=== PATIENT | male | born 1960 | race African-American/Black ===

== ENCOUNTER 2020-07-14 05:15 | Inpatient (IN) | payer OTHER ==
[2020-07-14] VITALS (14 sets, daily range): BP systolic 137–157; BP diastolic 77–89
[~2020-07-14] VITALS: Ht 175.3 cm; Wt 108.9 kg
[~2020-07-14 05:15] MED LIST: ACCUPRIL5 MG ORAL; ALBUTEROL SULF8.5 G1 INH; ASPIRIN81 MG ORAL; CETIRIZINE HCL10 MG PO; CRESTOR10 M2 ORAL; GLIPIZIDE5 MG ORAL; LOSARTAN-HCTZ1 EAC2 ORAL; METFORMIN HCL500 M1 ORAL
[2020-07-14] MEDS ORDERED: Midazolam 2mg/2ml Inj ONE (06:34)
[2020-07-14] MEDS ORDERED: fentaNYL 100 mcg/2 mL IV ONE (06:34)
[2020-07-14] MEDS ORDERED: Lidocaine 1% MPF 10mg/ml 5ml ONE (06:35)
[2020-07-14] MEDS ORDERED: Phenylephrine 10mg/ml Vial ONE (06:35)
[2020-07-14] MEDS ORDERED: Vancomycin 1gm vial IVPB ONE (06:41)
[2020-07-14] MEDS ORDERED: Gelfoam Size TOPIC ONE (06:42)
[2020-07-14] MEDS ORDERED: Thrombin 5000 units TOPIC ONE ×2 (06:42→08:29)
[2020-07-14] MEDS ORDERED: Bacitracin 50000 Units Vial ONE (06:43)
[2020-07-14] MEDS ORDERED: Rocuronium Bromide 50mg/5ml Inj IV ONE (06:43)
[2020-07-14] MEDS ORDERED: Succinylcholine 20mg/ml 10ml vial ONE (06:43)
[2020-07-14] MEDS ORDERED: LR 1000ml ONE (07:00)
[2020-07-14] MEDS ORDERED: Neostigmine 1mg/ml 10ml Inj ONE (07:00)
[2020-07-14] MEDS ORDERED: NS Irrig 1000ml ONE (07:00)
[2020-07-14] MEDS ORDERED: propofoL 1,000mg/100ml IV ONE (07:00)
[2020-07-14] MEDS ORDERED: ceFAZolin sod 2 GM in NS 55 ML IVPB ONE (07:00)
[2020-07-14] MEDS ORDERED: Sterile Water Irrig 1000ml IRRIG ONE (07:00)
--- NOTE | 2020-07-14 07:13 | Pre-Procedure Note/Attestation ---
Pre-Procedure Note/Attestation Complete Prior to Procedure Planned Procedure: not applicable Procedure Narrative: Anterior cervical discectomy and fusion of cervical 34,45 and 67 Indications for Procedure Pre-Operative Diagnosis: Disc herniation of C34,45,67 Attestation I attest that I discussed the nature of the procedure; its benefits; risks and complications; and alternatives (and the risks and benefits of such alternatives), prior to the procedure, with the patient (or the patient's legal inbound sales representative). I attest that, if there was a reasonable possibility of needing a blood transfusion, the patient (or the patient's legal inbound sales representative) was given the [facility] standardized written summary, pursuant to the Ras Stacey Blood Safety Act ([place] Health and Safety Code # 1645, as amended). I attest that I re-evaluated the patient just prior to the surgery and that there has been no change in the patient's H&P, except as documented below: Marvin Sanches MD Jul 14, 2020 07:13
--- NOTE | 2020-07-14 07:14 | Brief Operative Note ---
Immediate Post Operative Note Operative Note Chief Complaint: neck pain and radiculopathy Pre-op Diagnosis: Disc herniation of C34,45,67 Procedure: Anterior cervical discectomy and fusion of cervical 34,45 and 67 Post-op Diagnosis: same as pre-op Findings: consistent w/pre-op dx studies Surgeon: Verónica Paid Intern: Ozzy Anesthesiologist: PATTI Anesthesia: general Specimen: none Complications: none Condition: stable Fluids: IVF Estimated Blood Loss: minimal Drains: none Implant(s) used?: Yes - Nuvasive interlock sz5x2, sz 6x1, each level with 13mm screwsx3 Marvin Sanches MD Jul 14, 2020 07:14
[2020-07-14] MEDS ORDERED: Morphine Sulfate 2mg/ml Inj(IV/IM USE ONLY) IV PRN (07:15)
[2020-07-14] MEDS ORDERED: Chloraseptic Spray 20mL Bottle ORAL PRN (07:15)
[2020-07-14] MEDS ORDERED: Morphine Sulfate 4mg/ml Inj (IV USE ONLY) IV PRN ×2 (07:15)
[2020-07-14] MEDS ORDERED: Metoclopramide 10mg/2ml Inj IVP PRN (07:15)
[2020-07-14] MEDS ORDERED: HYDROcodone/Acetamin 5/325 tab ORAL PRN (07:15)
[2020-07-14] MEDS ORDERED: HYDROmorphone 1mg/ml Carpuject IVP PRN (07:15)
[2020-07-14] MEDS ORDERED: Milk of Magnesia 30ml Ud ORAL PRN (07:15)
[2020-07-14] MEDS ORDERED: Naloxone 0.4mg/ml Inj IVP PRN (07:15)
[2020-07-14] MEDS ORDERED: HYDROcodone/Acetamin 7.5/325 tab ORAL PRN ×2 (07:15)
[2020-07-14] MEDS ORDERED: Metoprolol Tartrate 5mg/5ml Inj ONE (08:08)
[2020-07-14] MEDS ORDERED: Morphine Sulfate 10mg/ml Inj ONE (08:11)
[2020-07-14] MEDS ORDERED: Sodium Chloride 10ml vial INJ ONE (08:12)
--- NOTE | 2020-07-14 08:26 | Anethesia Preoperative Eval ---
Anesthesia Pre-op PMH/ROS General Date of Evaluation: Jul 14, 2020 Time of Evaluation: 06:57 Anesthesiologist: Trina ASA Score: ASA 3 Mallampati Score Class I : Soft palate, uvula, fauces, pillars visible Class II: Soft palate, uvula, fauces visible Class III: Soft palate, base of uvula visible Class IV: Only hard plate visible Mallampati Classification: Class II Surgeon: Verónica Diagnosis: Cervical radiculopathy Surgical Procedure: ACDF Anesthesia History: none Family History: no anesthesia problems Allergies: Coded Allergies: No Known Allergies (Unverified , 07/14/20) Medications: see eMAR Patient NPO?: Yes Past Medical History Cardiovascular: Reports: HTN; Denies: CAD, GA, valve dz, arrhythmia, other Pulmonary: Reports: asthma - mild; Denies: COPD, ELOISA, other Gastrointestinal/Genitourinary: Reports: GERD, CRI - elevated Cr; Denies: ESRD, other Neurologic/Psychiatric: Reports: other - chronic pain Endocrine: Reports: DM; Denies: hypothyroidism, steroids, other HEENT: Denies: cataract (L), cataract (R), glaucoma, GULKANA (L), GULKANA (R), other Hematology/Immune: Reports: anemia - mild; Denies: DVT, bleeding disorder, other Musculoskeletal/Integumentary: Reports: OA, other - psoriasis Other: obesity PMH Narrative: as above PSxH Narrative: None Anesthesia Pre-op Phys. Exam Physician Exam Last Vital Signs Date Time Temp Pulse Resp B/P (MAP) Pulse Ox O2 Delivery O2 Flow Rate FiO2 07/14/20 05:57 Room Air 07/14/20 05:54 98.0 83 18 154/86 (108) 98 Constitutional: NAD Neurologic: CN 2-12 intact Cardiovascular: RRR Respiratory: CTA Gastrointestinal: other - besity Airway Exam Mallampati Score: Class II MO: limited Neck: short ROM: limited Teeth: missing Dentures: no upper, no lower Anesthesia Pre-op A/P Labs Chemistry Test 07/14/20 05:59 POC Whole Blood Glucose Pending Studies Pre-op Studies: EKG - NR, CXR - WNL, echo - EF 60-65% Risk Assessment & Plan Assessment: ASA 3 Plan: GA with ET neuromonitoring Status Change Before Surgery: No Pre-Antibiotics Drug: Ancef 2gr. Given Within 1 Hr of Incision: Yes Time Given: 08:05 Catracho Mena MD Jul 14, 2020 08:26
[2020-07-14] MEDS ORDERED: DiphenhydrAMINE 50mg/ml Inj IVP PRN (08:30)
[2020-07-14] MEDS ORDERED: Ketorolac 30mg Inj IV PRN (08:30)
[2020-07-14] MEDS ORDERED: LR 1000ml 1,000 ML IVLG SCH (08:30)
[2020-07-14] MEDS ORDERED: Hydromorphone 0.5mg/0.5ml inj IVP PRN (08:30)
[2020-07-14] MEDS ORDERED: Acetaminophen (Non formulary) 100 ML IV ONE (08:45)
[2020-07-14] MEDS ORDERED: Glycopyrrolate 0.2mg/ml 1ml Vial ONE (08:53)
[2020-07-14] MEDS ORDERED: Insulin Human Regular 100units/ml 3ml ONE (10:10)
[2020-07-14] MEDS ORDERED: Insulin Human Regular 100units/ml 3ml SUBQ ONE (10:15)
--- NOTE | 2020-07-14 10:15 | Immediate Post-Op Evaluation ---
Immediate Post-Op Evalulation Immediate Post-Op Evalulation Procedure: ACDF C3-C4, C4-C5, C6-C7 Date of Evaluation: Jul 14, 2020 Time of Evaluation: 10:14 IV Fluids: 600 Blood Products: none Estimated Blood Loss: 100 Urinary Output: 250 Blood Pressure Systolic: 134 Blood Pressure Diastolic: 76 Pulse Rate: 86 Respiratory Rate: 20 O2 Sat by Pulse Oximetry: 99 Temperature (Fahrenheit): 97.8 Pain Score (1-10): 1 Nausea: No Vomiting: No Complications none Patient Status: reacts, patent, extubated, none Hydration Status: adequate Catracho Mena MD Jul 14, 2020 10:15
--- NOTE | 2020-07-14 12:00 | NUR ---
NURSE NOTES: Patient arrived to unit at 1150 via bed in no apparent distress, reporting no pain but mild discomfort at surgical site. Received report from Mariana BARRAZA. Surgical site clean and dry, no bleeding, open to air with ice pack in place. IV intact, patent. On 3L NC. Neuro status intact, patient denies numbness/tingling in extremities. VS stable, on continuous pulseox. Bed in low and locked position and patient provided with call light. Per Mariana BARRAZA, outpatient will bring up patient's belongings.
--- NOTE | 2020-07-14 12:10 | 48 Hour Post Anesthesia Eval ---
Post Anesthesia Evaluation Procedure: ACDF C3-C4, C4-C5, C6-C7 Date of Evaluation: Jul 14, 2020 Time of Evaluation: 12:08 Blood Pressure Systolic: 153 0: 83 Pulse Rate: 85 Respiratory Rate: 20 Temperature (Fahrenheit): 97.6 O2 Sat by Pulse Oximetry: 97 Airway: patent Nausea: No Vomiting: No Pain Intensity: 2 Hydration Status: adequate Cardiopulmonary Status: Stable Mental Status/LOC: patient returned to baseline Follow-up Care/Observations: 0 Post-Anesthesia Complications: 0 Follow-up care needed: N/A Obdulio Girard MD Jul 14, 2020 12:10
--- NOTE | 2020-07-14 13:38 | NUR ---
NURSE NOTES: Received call from Dr. Sanches, provided updated on patient's current status. Reviewed home medications and received orders to continue metformin, losartan/hctz, and glipizide. Notified MD of bedside BG [id number], received order for sliding scale insulin (average).
[2020-07-14] MEDS: NS w/KCl 20mEq 1000ml 1,000 ML IV SCH ×2 (13:46→22:57)
--- NOTE | 2020-07-14 14:06 | Diagnostic Imaging Report ---
INDICATION: Pain, intraoperative TECHNIQUE: Intraoperative imaging Fluoroscopy time: 20.8 seconds Total dose: 0.43033 mGym2 Total number of images: 5 COMPARISON: None FINDINGS: Surgical tools are seen overlying initially C2 and C4, subsequently C3 and C5. Subsequent images document anterior fusion hardware bridging C3, C4, and C5, as well as C6 and C7. IMPRESSION: Intraoperative imaging, as described
[2020-07-14] MEDS: ceFAZolin sod 1 GM in D5W 55 ML IV SCH ×2 (15:49→22:57)
--- NOTE | 2020-07-14 16:14 | Operative Note - Dictated ---
DATE OF OPERATION: 07/14/2020 PREOPERATIVE DIAGNOSES: Cervical stenosis and herniation with stenosis at C3- C4, C4-C5, and C6-C7. Prior to marking the incision,baseline motor and sensory-evoked potentials and we were able to evoke them; however, we were unable to evoke motor-evoked potentials but prior to surgery moving of all 4 extremities prior to surgery and we elected to proceed with surgery. Marvin Sanches M.D. DR: LALITHA JOB#: [id number] CC: FREDO
--- NOTE | 2020-07-14 16:29 | Operative Note - Dictated ---
DATE OF OPERATION: 07/14/2020 SURGEON: Marvin Sanches MD, Orthopaedic Spine Surgeon. METAL FABRICATOR APPRENTICE: JUAN CARLOS Valencia PREOPERATIVE DIAGNOSES: 1. Intractable neck pain. 2. Radiculopathy. 3. Herniation, C3-C4, C4-C5, and C6-C7. 4. Neural foraminal stenosis, C3-C4, C4-C5, and C6-C7. 5. Stenosis. POSTOPERATIVE DIAGNOSES: 1. Intractable neck pain. 2. Radiculopathy. 3. Herniation, C3-C4, C4-C5, and C6-C7. 4. Neural foraminal stenosis, C3-C4, C4-C5, and C6-C7. 5. Stenosis. PROCEDURE PERFORMED: 1. Anterior cervical discectomy and fusion of C3-C4, using NuVasive interlock C, size 5 with three screws of 14 mm length and 1 mL of Osteocel allograft bone. 2. Anterior cervical discectomy and fusion of C4-C5, using NuVasive interlock C, size 6 with three screws of 14 mm length and 1 mL of Osteocel allograft bone. 3. Anterior cervical discectomy and fusion of C6-C7, using NuVasive interlock C, size 6 with three screws of 14 mm length. 4. Use of intraoperative microscope. 5. Motor-evoked potential monitoring. 6. Somatosensory-evoked potential monitoring. 7. Supervision and interpretation of fluoroscopy. COMPLICATIONS: None. ANESTHESIA: General. ESTIMATED BLOOD LOSS: Less than 100 mL. INDICATIONS FOR SURGERY: This patient is a 60-year-old male, who has a history of intractable neck pain, radiculopathy, herniation, C3-C4, C4-C5, and C6-C7, neural foraminal stenosis, C3-C4, C4-C5, and C6-C7, stenosis. We tried a course of conservative management but despite this course there was still a significant component of persistent, recalcitrant neck pain and arm pain. The MRI demonstrated significant neural foraminal compromise secondary to disc herniations at C3-C4, C4-C5, and C6-C7. We had a long discussion with [employer] regarding the risks and benefits of surgery. Our discussion included but was not limited to nonoperative management, chiropractic management, another epidural steroid injection as well definitive management in the form of surgery. We recommended an anterior cervical discectomy and fusion of C3-C4, C4-C5, and C6-C7 as final definitive management. We reviewed the risks and benefits of surgery with the patient. Our discussion included a comprehensive review of the clinical issues and the nature of the clinical decision. We reviewed the alternatives, including doing nothing. The patient elected to proceed accordingly with anterior cervical discectomy and fusion of C3-C4, C4-C5, and C6-C7. We had a long discussion regarding the risks, alternatives and benefits of surgery. Our description of the risks included a discussion in person as well as a signed consent which detailed all pertinent risks from the procedure itself. Briefly, our discussion included but was not limited to infection, bleeding, pseudarthrosis, spinal cord injury, neurovascular injury, dural tear, CSF leak, neuropathy, paralysis, permanent weakness/drop foot/drop arm, paresthesias, blindness, palsy and weakness. The patient understood there may be a need for a revision surgery or additional procedures. Approach-related complications including dysphonia, dysphagia, blindness, permanent vocal cord and neural injury, hematoma, swallowing and breathing difficulty. Medical complications were reviewed including liver, kidney, shock, cardiopulmonary failure, anesthesia complications including , swelling, damage to the musculature, larynx/voice injury or loss, esophagus/throat, trachea, blood vessels and muscles/muscular sprain and lungs/pneumothorax during this surgical procedure; injury to deeper structures may be temporary or permanent. After this review of risks, the patient understood these and elected to proceed. A written and verbal consent was given. We discussed the pros and cons of all the alternatives. We discussed the uncertainties associated with the decision. Afterwards I assessed the patient's understanding and explored their preferences. All questions were answered and no guarantees were given. Medical clearance was obtained prior to surgery. INTRAOPERATIVE FINDINGS: C3-C4; at C3-C4, we encountered an anterior based bone spur, which was denuded with an AM8 Midas Julito drill. The disc itself once visualized was collapsed. There was a soft character to the disc itself. It was not dehydrated for the majority of the disc. On approaching the posterior longitudinal ligament posteriorly, I found a tear in the PLL and through this tear I probed and found discrete tissue of nucleus pulposus, which was encroaching on the neural foramina. This tissue was resected with a Microsect curette, Kerrison-1 and Kerrison-2 rongeurs until complete and thorough foraminotomy and decompression of the thecal sac and spinal cord was performed. C4-C5; there was an anterior bone spur, which was denuded with a drill bit giving rise to a collapsed disc space at C4-C5. The disc area appeared dehydration. Upon resection of the disc, I noted the posterior longitudinal ligament demonstrated a tear along the posterior fibers. This was probed and led to the discovery of a nuclear fragment encroaching on the neural foramina posteriorly and applying pressure along the aspect of the thecal sac, spinal cord and neural foramina bilaterally. This was carefully resected with Kerrison-1 and Kerrison-2 rongeurs. At C6-C7, I encountered no overlying bone spur. There was a collapse of the disc space. The disc itself was soft and appeared to be probably dehydrated. Upon resection of the disc near the posterior aspect, I noted a tear in the posterior longitudinal ligament approximately 10 degrees cephalad to caudad. On probing this tear, gave rise to three nuclear fragments from the nucleus pulposus, which were currently encroaching the neural foramina and the thecal sac and spinal cord posteriorly. These were resected with Kerrison-1 and Kerrison-2 rongeurs until complete decompression of the thecal sac and spinal cord was performed. After which, the foraminotomy was performed with Kerrison-2 rongeur as well. DESCRIPTION OF PROCEDURE: Under the benefit of general endotracheal anesthesia and with the assistance of the entire operative team, the patient was moved from the rsmyrna onto the operative table in the supine position. The head was secured and carefully positioned appropriately. Bilateral arms were secured with Gel Pads and foam and all bony prominences were padded. For the bilateral lower extremities SCD and MARY hose were placed for DVT prophylaxis. A surgical timeout was called which corroborated our planned procedure of anterior cervical discectomy and fusion of C3-C4, C4-C5, and C6-C7. Preoperative antibiotics were administered within 30 minutes of the incision for antibiotic prophylaxis. Using lateral fluoroscopic radiography, the operative levels were delineated. Next the wound was prepped and draped with Chlorhexidine and sterile drapes. An incision was based on lateral fluoroscopy and we centered our incision at the C3-C4, C4-C5, and C6-C7 interspace and next using a standard Davis-Castorena anterior based approach the incision was taken down through the skin and subcutaneous tissues until the vertebral bodies and their corresponding disc spaces were visualized. A needle was placed into the interspace to confirm placement of the operative interspace and we performed the remainder of procedure under microscopic visualization. Next, using a bipolar and Bovie cautery to ensure meticulous hemostasis, the longus colli was mobilized bilaterally and retractors were placed deep to the longus colli bilaterally to address retraction. Next, we turned our attention to the radical anterior discectomy. This was initially performed at C3-C4. First by using a 15 blade scalpel followed by narrow pituitaries and a Microsect 5-B curette was used to denude the endplate of all cartilaginous tissue. Next, using a Midas Julito AM8 drill bit the vertebral endplates were denuded in a bcgq-fl-aoch and layer by layer fashion, and ultimately the posterior uncinate joints bilaterally and posterior osteophytic lips and margins causing central and lateral impingement were carefully denuded until visualization of the posterior longitudinal ligament was possible. An endplate preparation was performed in the exact same fashion using an intervertebral tribal delegate, sequential distraction was obtained throughout the disc space. We saw a tear/rent in the PLL and this was carefully mobilized and dissected using a Microsect 1-B curette until we visualized a broad-based disc herniation with compression of the spinal cord as well as neural foramina bilaterally. This neural foraminal compression was carefully resected using a Kerrison-1 and Kerrison-2 rongeurs until complete decompression of the spinal cord was visualized and complete decompression of the neural foramina and nerve root therein as well as the axilla and lateral margin of the nerve root was visualized and subsequently completely decompressed. The family was notified at one hour intervals throughout the procedure to provide for consistent updates. Next, we turned our attention to the radical anterior discectomy. This was initially performed at C4-C5. First by using a 15 blade scalpel followed by narrow pituitaries and a Microsect 5-B curette was used to denude the endplate of all cartilaginous tissue. Next, using a Midas Julito AM8 drill bit the vertebral endplates were denuded in a [id number] and layer by layer fashion, and ultimately the posterior uncinate joints bilaterally and posterior osteophytic lips and margins causing central and lateral impingement were carefully denuded until visualization of the posterior longitudinal ligament was possible. An endplate preparation was performed in the exact same fashion using an intervertebral tribal delegate, sequential distraction was obtained throughout the disc space. We saw a tear/rent in the PLL and this was carefully mobilized and dissected using a Microsect 1-B curette until we visualized a broad-based disc herniation with compression of the spinal cord as well as neural foramina bilaterally. This neural foraminal compression was carefully resected using a Kerrison-1 and Kerrison-2 rongeurs until complete decompression of the spinal cord was visualized and complete decompression of the neural foramina and nerve root therein as well as the axilla and lateral margin of the nerve root was visualized and subsequently completely decompressed. We next turned our attention to the radical anterior discectomy. This was initially performed at C6-C7. First by using a 15 blade scalpel followed by narrow pituitaries and a Microsect 5-B curette was used to denude the endplate of all cartilaginous tissue. Next, using a Tailster AM8 drill bit the vertebral endplates were denudued in a [id number] and layer by layer fashion, and ultimately the posterior uncinate joints bilaterally and posterior osteophytic lips and margins causing central and lateral impingement were carefully denuded until visualization of the posterior longitudinal ligament was possible. An endplate preparation was performed in the exact same fashion using an intervertebral tribal delegate, sequential distraction was obtained throughout the disc space. We saw a tear/rent in the PLL and this was carefully mobilized and dissected using a Microsect 1-B curette until we visualized a broad-based disc herniation with compression of the spinal cord as well as neural foramina bilaterally. This neural foraminal compression was carefully resected using a Kerrison-1 and Kerrison-2 rongeurs until complete decompression of the spinal cord was visualized and complete decompression of the neural foramina and nerve root therein as well as the axilla and lateral margin of the nerve root was visualized and subsequently completely decompressed. We next turned our attention towards trialing our implant within the C34 disc space. We initially tried size 5 from the NuAMENDIA interlock system at each level, which appeared to be appropriate under AP and lateral fluoroscopy as well as in terms of its height, depth, width and lack of toggle. The PEEK polyetheretherketone interbody cages were then both packed with allograft bone from Osteocel and local autograft bone matrix. Next, these were then carefully advanced and secured into their intervertebral spaces under direct visualization and with supervision of AP and lateral fluoroscopic views. This was then performed at the next level, C4-C5. We initially tried size 5 and afterwards size 6 trial from the NuVasive interlock system at each level, which appeared to be appropriate under AP and lateral fluoroscopy as well as in terms of its height, depth, width and lack of toggle. The PEEK polyetheretherketone interbody cages were then both packed with allograft bone from Osteocel and local autograft bone matrix. Next, these were then carefully advanced and secured into their intervertebral spaces under direct visualization and with supervision of AP and lateral fluoroscopic views. This was then performed at the next level, C6-C7. We initially tried size 5 and afterwards size 6 trial from the NuVasive interlock system at each level, which appeared to be appropriate under AP and lateral fluoroscopy as well as in terms of its height, depth, width and lack of toggle. The PEEK polyetheretherketone interbody cages were then both packed with allograft bone from Osteocel and local autograft bone matrix. Next, these were then carefully advanced and secured into their intervertebral spaces under direct visualization and with supervision of AP and lateral fluoroscopic views. We next turned our attention towards plating. Plating was performed at C3-C4 with NuVasive interlock-C plating system. A total of three screws, size 14 mm in length were inserted and confirmed under AP and lateral fluoroscopy and confirmed to be in excellent position. This was then performed at the next level, C4-C5. Plating was performed with NuVasive interlock-C plating system. A total of three screws, size 14 mm in length were inserted and confirmed under AP and lateral fluoroscopy and confirmed to be in excellent position. This was then performed at the next level, C6-C7. Plating was performed with NuVasive interlock-C plating system. A total of three screws, size 14 mm in length were inserted and confirmed under AP and lateral fluoroscopy and confirmed to be in excellent position. After a finger sweep we confirmed removal of all sponges. The retractor was removed and we next turned our attention to meticulous hemostasis with FloSeal and bipolar cautery. After the sponge and needle count was again found to be correct with our second count, we next turned our attention to closure. The wound was again copiously irrigated with antibiotic impregnated saline. Closure consisted of 4-0 clear nylon for the platysma, and 6-0 clear nylon for the superficial skin. Final skin closure and dressings consisted of Dermabond. Prior to final closure, a final radiograph was obtained which demonstrated the hardware is intact with excellent position throughout. The patient tolerated the procedure well. The patient was carefully extubated after the conclusion of surgery. We discussed the findings of the surgery with the family upon completion of the case. At this point the patient was transferred to the spine floor for further observation. Marvin Sanches M.D. DR: TASNEEM JOB#: [id number] CC: FREDO
[2020-07-14] MEDS: GlipiZIDE 5mg tab ORAL SCH (16:48)
[2020-07-14] MEDS: NovoLOG Insulin Flexpen SUBQ SCH ×2 (16:49→20:39)
[2020-07-14] MEDS: Docusate 100mg cap ORAL SCH (18:03)
--- NOTE | 2020-07-14 19:13 | NUR ---
NURSE HAND-OFF: Important Events on Shift: Post-op, VS stable, encouraged to ambulate, voided. Patient Status: stable Diet: Post-op cervical Pending Orders: N/A Pending Results/Labs: N/A Pending MD notification: N/A Latest Vital Signs: Temperature 98.1 , Pulse 88 , B/P 141 /82 , Respiratory Rate 16 , O2 SAT 97 , Nasal Cannula, O2 Flow Rate 3.0 . Vital Sign Comment: VS stable Latest David Fall Score: 35 Fall Risk: Medium Risk Safety Measures: Call light , Bed Alarm , Side rails upx2 Report given to Noah BARRAZA.
--- NOTE | 2020-07-14 19:15 | NUR ---
NURSE NOTES: received pt and report from Debbie BARRAZA. pt alert and oriented x 4 with no acute s/s of distress and no co of pain at the moment. IV site noted clean dry and intact and running fluids as ordered. Plan of care discussed. surgical would clean and dry and no sign of infection.
[2020-07-15] VITALS: BP 133/86
--- NOTE | 2020-07-15 | NUR ---
NURSE NOTES: pt vitals stable. pt in no acute distress and no co pain at the moment. pt got up and ambulated to the bathroom and voided. he needed very little assist. he also made 2 rounds around the room. pt tolerated ambulation well. encouraged to ambulate more today during day shift. he is alert and oriented x 4 during pt nurse interactions.
--- NOTE | 2020-07-15 03:46 | NUR ---
NURSE NOTES: pt with co headache. given tylenol 650mg prn for headache as ordered. pt verbalized headache of 5/10, at rest, which was aching but did not radiate to any other location. Will reassess and follow up on headache.
[2020-07-15 03:53] VITALS: BP 138/84
--- NOTE | 2020-07-15 04:20 | NUR ---
NURSE NOTES: pt vital signs stable, pt also states less headache pain after being given tylenol. pt is in no acute distress and no other co pain at the moment. ambulated with pt 4 laps around the unit, steady gait, tolerated well. pt voiding.
[2020-07-15] MEDS: GlipiZIDE 5mg tab ORAL SCH (05:52)
[2020-07-15] MEDS: NovoLOG Insulin Flexpen SUBQ SCH ×2 (05:55→11:30)
--- NOTE | 2020-07-15 07:08 | NUR ---
NURSE HAND-OFF: Important Events on Shift:ambulated with pt, steady, pain management Patient Status: stable Diet: post op cervical Pending Orders: na Pending Results/Labs:na Pending MD notification:na Latest Vital Signs: Temperature 99.0 , Pulse 73 , B/P 138 /84 , Respiratory Rate 17 , O2 SAT 98 , Nasal Cannula, O2 Flow Rate 3.0 . Vital Sign Comment: stable through the shift Latest David Fall Score: 35 Fall Risk: Medium Risk Safety Measures: Call light , Bed Alarm , Side Rails Side Rails x2, Bed position Low and Locked. Fall Precautions: Yellow Socks Patient Fall Education Report will be given to MADI Vee.
[2020-07-15 08:30] VITALS: BP 154/84
[2020-07-15] MEDS: Docusate 100mg cap ORAL SCH (08:38)
[2020-07-15] MEDS: ceFAZolin sod 1 GM in D5W 55 ML IV SCH (08:42)
[2020-07-15] MEDS: NS w/KCl 20mEq 1000ml 1,000 ML IV SCH (08:47)
[2020-07-15] MEDS ORDERED: Hyzaar 50-12.5mg tab ORAL SCH (09:00)
[2020-07-15] MEDS ORDERED: metFORMIN 500mg tab ORAL SCH (09:00)
--- NOTE | 2020-07-15 10:07 | NUR ---
NURSE NOTES: Seen and evaluated by and Patient cleared to discharge surgical standpoint. Order noted and carried out.
--- NOTE | 2020-07-15 12:03 | General Progress Note ---
Subjective Allergies: Coded Allergies: No Known Allergies (Unverified , 07/14/20) Subjective asked to follow Objective Last 24 Hour Vital Signs Date Time Temp Pulse Resp B/P (MAP) Pulse Ox O2 Delivery O2 Flow Rate FiO2 07/15/20 10:33 Room Air 07/15/20 08:38 154/84 07/15/20 08:30 98.9 18 154/84 (107) 97 07/15/20 03:53 99.0 73 17 138/84 (102) 98 07/15/20 00:00 98.8 76 15 133/86 (102) 97 07/14/20 19:56 Nasal Cannula 3.0 07/14/20 19:55 98.7 88 16 141/83 (102) 97 07/14/20 17:10 Nasal Cannula 3.0 07/14/20 16:00 98.1 88 16 141/82 (101) 97 07/14/20 13:50 88 16 140/80 (100) 96 07/14/20 12:50 89 16 140/77 (98) 98 07/14/20 12:20 85 16 139/78 (98) 93 07/14/20 12:10 85 20 97 Intake and Output 07/14/20 07/15/20 19:00 07:00 Intake Total 1505 ml 1700 ml Output Total 825 ml 1250 ml Balance 680 ml 450 ml Intake Oral 700 ml 600 ml IV Total 805 ml 1100 ml Output Urine Total 725 ml 1250 ml Estimated Blood Loss 100 ml # Voids 3 Laboratory Tests 07/14/20 12:56: POC Whole Blood Glucose [Pending] 07/14/20 16:42: POC Whole Blood Glucose 237H 07/14/20 20:35: POC Whole Blood Glucose 235H 07/15/20 05:50: POC Whole Blood Glucose 194H Height (Feet): 5 Height (Inches): 9.00 Weight (Pounds): 240 Objective WDWN NAD clear breath sounds bilaterally without rhonchi or wheeze [id number] without MRG NABS nontender no HSM no CCE nonfocal Assessment/Plan Assessment/Plan: neck pain and radiculopathy Disc herniation of C34,45,67 Anterior cervical discectomy and fusion of cervical 34,45 and 67 PLAN 1. incentive spirometry 2. Lovenox 3. PT evaluation and therapy 4. Hydration 5. SCD 6. discharge home Albert Pena MD Jul 15, 2020 12:03
[2020-07-15 12:11] VITALS: BP 152/93
--- NOTE | 2020-07-15 12:34 | NUR ---
Called Dr Pena because pt BP at 0830 was 154/84 and gave pt scheduled BP med Hyzaar and at 1211 it was 152/93 pt verbalized he is not in pain. verbalized to put in order for clonodine 0.1mg PO 1x.
[2020-07-15 12:43] VITALS: BP 152/93
--- NOTE | 2020-07-15 13:01 | NUR ---
NURSE NOTES: Pt given 0.1mg Clonidine PO given before pt was dc. Explained to pt that he should stay one hour to be monitored for BP change after med given but pt verbalized he wanted to leave. IV DC, removed Pt ID wristband, pt belongings returned to pt, home meds returned to pt. Educated pt that MD wants him to hold asprin for one week, pt verbalized he will follow md order. Pt verbalized understanding of paperwork and signed. No falls or injuries during shift. Pt ambulated down to car. Pt DC home with son.
--- NOTE | 2020-07-15 13:22 | NUR ---
CASE MANAGEMENT:INITIAL REVIEW 60 YR OLD MALE FROM HOME FOR SCHEDULED PROCEDURE CC;DISC HERNIATION SI;POD #1 ANTERIOR CERVICAL DISCECTOMY AND FUSION OF C34, C45, C67 98.0 86 22 154/86 98% ON RA RAPID COVID - NEGATIVE CERVICAL SPINE XRAY ~ Intraoperative imaging, as described IS;DILAUDID IV BENADRYL IV KCL/NS IV CEFAZOLIN IV DECADRON IV ADMITTED TO MED SURG FOR POST OP CARE MED SURG STATUS DCP;HOME
--- NOTE | 2020-07-17 13:03 | Discharge Summary ---
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 Patient was admitted for elective surgery Consultations Dr Pena -IM Procedures s/p 07/14/[address] Sanches 1. Anterior cervical discectomy and fusion of C3-C4, using NuVasive interlock C, size 5 with three screws of 14 mm length and 1 mL of Osteocel allograft bone. 2. Anterior cervical discectomy and fusion of C4-C5, using NuVasive interlock C, size 6 with three screws of 14 mm length and 1 mL of Osteocel allograft bone. 3. Anterior cervical discectomy and fusion of C6-C7, using NuVasive interlock C, size 6 with three screws of 14 mm length. 4. Use of intraoperative microscope. 5. Motor-evoked potential monitoring. 6. Somatosensory-evoked potential monitoring. 7. Supervision and interpretation of fluoroscopy. Hospital Course status post surgery course of recovery uneventful initially IV fluids s/p perioperative antibiotic and steroid neurovascular status closely monitored, remained stable incision clean dry and intact , dressed pain management was addressed and controlled remained hemodynamically stable ambulated with PT fall precautions maintained; safe for ambulation DVT prophylaxis provided use of incentive spirometry was encouraged while in the bed tolerated diet , IV fluids discontinued antiemetics were on board as needed BP and BS were stable with current regimen voided freely bowel regimen instituted patient was stable for discharge discharge instructions provided follow up with surgeon in the office as advised FINAL DIAGNOSES Intractable neck pain. Radiculopathy. Herniation, C3-C4, C4-C5, and C6-C7. Neural foraminal stenosis, C3-C4, C4-C5, and C6-C7. Stenosis s/p Anterior cervical discectomy and fusion of cervical 34,45 and 67 HTN Diabetes Discharge Medications Continued Medications: Albuterol Sulfate* (Albuterol Sulfate Hfa*) 8.5 Gm Hfa.aer.ad 2 PUFF INH PRN PRN for Shortness of Breath, #1 INH Cetirizine Hcl (ZyrTEC*) 10 Mg Tablet 10 MG PO DAILY PRN for Bronchospasm, TAB Glipizide* (Glipizide*) 5 Mg Tablet 5 MG ORAL BIDAC for Diabetes Mellitus, TAB Losartan/Hydrochlorothiazide (Losartan-Hctz 50-12.5 Mg Tab) 1 Each Tablet 1 TAB ORAL DAILY for as prescribed, TAB 0 Refills Metformin Hcl* (Metformin Hcl*) 500 Mg Tablet 500 MG ORAL DAILY for Diabetes Mellitus, TAB Quinapril Hcl (Accupril) 5 Mg Tablet 5 MG ORAL DAILY for as prescribed, TAB Rosuvastatin Calcium* (Crestor*) 10 Mg Tablet 10 MG ORAL DAILY for Dyslipidemia, TAB Discontinued Medications: Aspirin* (Aspirin*) 81 Mg Tab.chew 81 MG ORAL DAILY for Antiplatelet, TAB Discharge Condition Upon Discharge: stable Discharge Vital Signs Last Vital Signs Date Time Temp Pulse Resp B/P (MAP) Pulse Ox O2 Delivery O2 Flow Rate FiO2 07/15/20 12:43 152/93 07/15/20 12:11 98.7 92 15 98 07/15/20 10:33 Room Air 07/14/20 19:56 3.0 Discharge Disposition Patient was discharged home Discharge Instructions Discharge Instructions Special Instructions I have been assigned to complete a D/C Summary on this account. I was not involved in the patient management Raquel Louise NP Jul 17, 2020 13:03
== END 2020-07-15 12:55 | disposition home or self-care (01) | DRG 473 ==
LOC: SDSOVERFLO 05:15 → 3E 11:58
PROC: 0RG20A0 Fusion of 2 or more Cervical Vertebral Joints with Interbody Fusion Device, Anterior Approach, Anterior Column, Open Approach (ICD-10-PCS; principal; 2020-07-14 07:00)
PROC: 0RB30ZZ Excision of Cervical Vertebral Disc, Open Approach (ICD-10-PCS; principal; 2020-07-14 07:00)
DX: M50.11 Cervical disc disorder with radiculopathy, high cervical region (principal); M48.02 Spinal stenosis, cervical region; I10 Essential (primary) hypertension; E11.9 Type 2 diabetes mellitus without complications; Z79.84 Long term (current) use of oral hypoglycemic drugs
CPT/HCPCS: 36415; 72040; 76000; 82962; 86850; 86900; 86901; 87081; J1815; J2250; J2370; J2710; U0002